=== PATIENT | male | born 1995 | race African-American/Black ===

== ENCOUNTER 2024-02-02 15:53 | Observation (INO) ==
[2024-02-02] MEDS: NS 0.9% 1000 ml BAG 1,000 ML IV ONE ×2 (16:35→19:20)
[2024-02-02 16:44] LABS: ABS Basophils 0.1 10^3/uL (0.0-0.1); ABS Eosinophils 0.1 10^3/uL (0.0-0.5); ABS Lymphocytes 1.5 10^3/uL (1.0-4.8); ABS Monocytes 0.9 10^3/uL (0.0-1.1); ABS Neutrophils 9.5 10^3/uL (1.5-7.6); Eosinophil % 1.2 %; Hematocrit 36.3 % (38-53); Hemoglobin 11.8 g/dL (13.2-16.3); Lymphocyte % 12.5 %; Mean Corpuscular Hemoglobin 30.3 pg (27-33); Mean Corpuscular Hgb Conc 32.6 g/dL (31-36); Mean Corpuscular Volume 93.1 fL (80-97); Mean Platelet Volume 8.7 fL (7.5-11.2); Platelet Count 296 10^3/uL (150-450); Red Cell Distribution Width 13.4 % (12-17); White Blood Count 12.1 10^3/uL (3.6-10.2)
[2024-02-02 17:28] LABS: Albumin 3.5 g/dL (3.2-5.2); Albumin/Globulin Ratio 0.7 (1-3); C Reactive Protein 109.72 mg/L (<8.01); Calcium 9.5 mg/dL (8.6-10.3); Creatinine, Serum 0.96 mg/dL (0.67-1.17); Globulin 5.2 g/dL (2-4); Potassium 3.8 mmol/L (3.5-5.0); Total Bilirubin 0.4 mg/dL (0.2-1.0); Total Protein 8.7 g/dL (6.4-8.9); eGFR CKD-EPI 109.7 (>60)
[2024-02-02] MEDS: Clindamycin 900 MG/D5W BAG 900 MG/50 ML BAG IVPB ONE (20:13)
[2024-02-02] MEDS: Iohexol 300 (CONTRAST) 10 ML SDV IV ONE (21:04)
[2024-02-03] MEDS ORDERED: Sulfur Hexaflouride MICROSPHR 25 MG VIAL IV PRN ×2 (03:11→13:15)
[2024-02-03 08:24] LABS: ABS Basophils 0.1 10^3/uL (0.0-0.1); ABS Eosinophils 0.2 10^3/uL (0.0-0.5); ABS Lymphocytes 1.5 10^3/uL (1.0-4.8); ABS Monocytes 0.8 10^3/uL (0.0-1.1); ABS Neutrophils 5.5 10^3/uL (1.5-7.6); Eosinophil % 2.8 %; Hematocrit 33.7 % (38-53); Hemoglobin 11.3 g/dL (13.2-16.3); Lymphocyte % 18.6 %; Mean Corpuscular Hemoglobin 31.2 pg (27-33); Mean Corpuscular Hgb Conc 33.4 g/dL (31-36); Mean Corpuscular Volume 93.3 fL (80-97); Mean Platelet Volume 8.6 fL (7.5-11.2); Platelet Count 239 10^3/uL (150-450); Red Blood Count 3.61 10^6/uL (4.06-5.63); Red Cell Distribution Width 12.8 % (12-17); White Blood Count 8.2 10^3/uL (3.6-10.2)
[2024-02-03] MEDS: Enoxaparin 40 MG/0.4 ML SYR SUBCUT SCH (08:33)
[2024-02-03] MEDS: Clindamycin 300 MG/D5W BAG 300 MG/50 ML BAG IV SCH (08:33)
[2024-02-03 09:00] LABS: C Reactive Protein 110.69 mg/L (<8.01); Calcium 8.8 mg/dL (8.6-10.3); Creatinine, Serum 0.88 mg/dL (0.67-1.17); Potassium 3.9 mmol/L (3.5-5.0); eGFR CKD-EPI 119.4 (>60)
[2024-02-03] MEDS: Metoclopramide 5 MG/ML VIAL (10 mg) IV SLOW PU ONE (11:28)
[2024-02-03 14:50] VITALS: BP 124/75
== END 2024-02-03 16:35 | disposition home or self-care (01) ==
LOC: ED 15:53 → EDHOLD 15:53 → SUATTDRO 02-03 01:35 → MEDTELE 02-03 04:20
PROVIDERS: ADMIT Internal Medicine; ATTEND Student in an Organized Health Care Education/Training Program